=== PATIENT | female | born 1985 | race African-American/Black ===

== ENCOUNTER → 2018-07-20 | Outpatient (CLI) | payer OTHER | LOC: M RAD 09:04 | DX: R94.5 Abnormal results of liver function studies (principal); K76.0 Fatty (change of) liver, not elsewhere classified | CPT/HCPCS: 76705 ==

== ENCOUNTER 2018-11-03 22:32 | Emergency (ER) | payer OTHER ==
[~2018-11-03] VITALS: Ht 149.9 cm; Wt 81.8 kg
[~2018-11-03 22:32] MED LIST: ENOX40IN3 SC; METF500T13 PO; MULTTAB20 PO; VITA200028 PO
[2018-11-03 23:25] LABS: BASO % 0.1 % (0.0-1.0); HEMATOCRIT 37.7 % (36.0-47.0); LYMPH # 1.7 10^3/uL (1.5-4.5); LYMPH % 14.7 % (24.0-44.0); MEAN CORPUSCULAR HEMOGLOBIN 27.8 pg (27.0-33.0); MEAN CORPUSCULAR HGB CONC 31.8 g/dl (32.0-36.5); MEAN CORPUSCULAR VOLUME 87.3 fl (80.0-96.0); MONO # 0.2 10^3/uL (0.0-0.8); MONO % 1.8 % (0.0-5.0); NEUTROPHILS # 9.7 10^3/uL (1.8-7.7); PLATELET COUNT, AUTOMATED 392 10^3/uL (150-450); RED BLOOD COUNT 4.32 10^6/uL (4.00-5.40); WHITE BLOOD COUNT 11.6 10^3/uL (4.0-10.0)
[2018-11-03 23:30] LABS: HCG, SERUM QUALITATIVE NEGATIVE (NEGATIVE)
[2018-11-03] MEDS ORDERED: NS 1,000 ML IV ONE (23:30)
[2018-11-03] MEDS ORDERED: MORPHINE 4 MG/ML 1ML VIAL/SYRINGE (J2270) IV ONE (23:30)
[2018-11-03 23:36] LABS: BLOOD UREA NITROGEN 11 MG/DL (7-18); CALCIUM LEVEL 8.6 MG/DL (8.5-10.1); CARBON DIOXIDE LEVEL 24 MEQ/L (21-32); CHLORIDE LEVEL 104 MEQ/L (98-107); CREATININE FOR GFR 0.71 MG/DL (0.55-1.30); GLOMERULAR FILTRATION RATE > 60.0 (>60); GLUCOSE, FASTING 150 MG/DL (70-100); INR 0.97; POTASSIUM SERUM 4.3 MEQ/L (3.5-5.1); SODIUM LEVEL 136 MEQ/L (136-145)
[2018-11-03 23:37] LABS: PARTIAL THROMBOPLASTIN TIME 29.9 SECONDS (25.4-37.6)
[2018-11-03] MEDS ORDERED: ISOVUE-370 76% 100ML VIAL (Q9967) As Ordered ONE (23:43)
--- NOTE | 2018-11-04 00:28 | REPVR ---
EXAM: CT Angiography Chest With Contrast EXAM DATE/TIME: 11/03/2018 11:38 PM CLINICAL HISTORY: 33 years old, female; Pain; Chest pain; Type not specified; Patient HX: Recent surgery to abdomen; Additional info: Dysp TECHNIQUE: Axial computed tomographic angiography images of the chest with intravenous contrast using CT angiography protocol. All CT scans at this facility use at least one of these dose optimization techniques: automated exposure control; mA and/or kV adjustment per patient size (includes targeted exams where dose is matched to clinical indication); or iterative reconstruction. Coronal and sagittal reformatted images were created and reviewed. MIP reconstructed images were created and reviewed. Technologist notes: Facility exam id and description: CT. [place] CT angio chest CONTRAST: Contrast Material: 100 ml of iso; Contrast Route: ac COMPARISON: No relevant prior studies available. FINDINGS: Pulmonary arteries: The main pulmonary artery measures 23 mm. No pulmonary embolism is identified. Aorta: The ascending thoracic aorta measures 24 mm. Lungs: Mild patchy bilateral groundglass infiltrates with minimal scattered fibro-atelectatic change, greatest in the lower lobes and lingula. Pleural space: Normal. No pneumothorax. No pleural effusion. Heart: Normal. No cardiomegaly. No pericardial effusion. Stomach and bowel: Focal area of induration and stranding with coarse calcifications in the right breast which may reflect dystrophic calcification and prior surgery. Intraperitoneal space: Minimal free air in the abdomen consistent with stated history of recent surgery. Lymph nodes: Unremarkable. No enlarged lymph nodes. Bones/joints: Unremarkable. No acute fracture. Soft tissues: Unremarkable. Other findings: Calcified granulomata are noted and greatest in the medial right apex. IMPRESSION: 1. Mild patchy groundglass pulmonary infiltrates with minimal scattered fibro-atelectatic change, greatest in the lower lobes and lingula. 2. Minimal free air in the abdomen consistent with stated history of recent abdominal surgery. 3. Evidence of old granulomatous disease. 4. Area of coarse calcification and stranding density in the right breast suggesting prior surgery. 5. Otherwise negative CTA chest. No pulmonary embolism is identified. Electronically signed by: Sanjiv Kothari On 11/04/2018 00:28:11 AM
--- NOTE | 2018-11-04 00:39 | REPVR ---
EXAM: CT Abdomen and Pelvis With Contrast EXAM DATE/TIME: 11/03/2018 11:38 PM CLINICAL HISTORY: 33 years old, female; Pain; Abdominal pain; Generalized; Prior surgery; Surgery date: 3-7 days post-operative; Surgery type: Gyno; Additional info: Dysp TECHNIQUE: Axial computed tomography images of the abdomen and pelvis with intravenous contrast. All CT scans at this facility use at least one of these dose optimization techniques: automated exposure control; mA and/or kV adjustment per patient size (includes targeted exams where dose is matched to clinical indication); or iterative reconstruction. Coronal and sagittal reformatted images were created and reviewed. Technologist notes: Facility exam id and description: CT. Abdpelw[place] CT abd/pel w/iv contrast only CONTRAST: Contrast Material: 100 ml of iso; Contrast Route: ac COMPARISON: LIVER US 07/20/2018 9:15 AM FINDINGS: Lower thorax: Minimal bibasilar ground glass infiltrates and fibro-atelectatic change. ABDOMEN: Liver: Liver attenuation is 87 Hounsfield units and the spleen is 152. There are some focal areas of hepatic hyperenhancement consistent with areas of AV shunting. Gallbladder and bile ducts: Normal. No calcified stones. No ductal dilation. Pancreas: Normal. No ductal dilation. Spleen: Normal. No splenomegaly. Adrenals: Normal. No mass. Kidneys and ureters: Normal. No hydronephrosis. Stomach and bowel: Normal. No obstruction. No mucosal thickening. Appendix: A normal appendix is seen. PELVIS: Bladder: Unremarkable as visualized. Reproductive: Inhomogeneous myometrium suggesting small fibroids. There is relative prominence of an inhomogeneous right adnexal structure which may reflect the right ovary which appears enlarged measuring 5.2 x 4.0 x 3.7 cm. There is slight surrounding induration. ABDOMEN and PELVIS: Intraperitoneal space: Gas in the right anterior abdominal wall and minimal free air in the abdomen consistent with stated recent surgery. Gas extends into an epigastric ventral wall hernia and there is uncontained subcutaneous gas in the lower right anterior abdominal and pelvic wall. Bones/joints: No acute fracture. No dislocation. Soft tissues: See Intraperitoneal Space Finding. Vasculature: Normal. No abdominal aortic aneurysm. Lymph nodes: Normal. No enlarged lymph nodes. IMPRESSION: 1. Gas in the right anterior abdominal and pelvic wall and free intraperitoneal air consistent with recent surgery. There is extension of peritoneal gas into an epigastric ventral wall hernia. There is prominent uncontained subcutaneous gas in the lower right abdominal/pelvic wall. 2. Minimal bibasilar ground glass infiltrates and fibro-atelectatic change. 3. Fatty infiltration of the liver. There are some ill-defined areas of hyperenhancement suggesting AV shunting. 4. Suggestion of uterine fibroids. 5. Mild enlargement of the right ovary with slight surrounding induration of uncertain etiology and may reflect recent surgery. Electronically signed by: Sanjiv Kothari On 11/04/2018 00:39:35 AM
[2018-11-04 00:58] VITALS: BP 109/72
--- NOTE | 2018-11-09 07:04 | ED PDOC ---
Post-Departure Follow-Up ct abd/p faxed to dr bach for fu Mary Tomas MD Nov 09, 2018 07:04
--- NOTE | 2018-11-09 07:05 | ED PDOC ---
Post-Departure Follow-Up additionally cta chest faxed to same pcp for fu Mary Tomas MD Nov 09, 2018 07:05
== END 2018-11-04 01:00 | disposition home or self-care (01) ==
LOC: M ED 22:32
DX: G89.18 Other acute postprocedural pain (principal); M25.511 Pain in right shoulder; E11.9 Type 2 diabetes mellitus without complications; Z86.718 Personal history of other venous thrombosis and embolism; Z79.899 Other long term (current) drug therapy; Z79.01 Long term (current) use of anticoagulants; Z79.84 Long term (current) use of oral hypoglycemic drugs
CPT/HCPCS: 71275; 74177; 80048; 84703; 85025; 85610; 85730; 96374; 99283; J2270; Q9967

== ENCOUNTER → 2018-11-18 | Outpatient (CLI) | payer OTHER ==
--- NOTE | 2018-11-18 16:36 | REP ---
Bilateral lower extremity Duplex Doppler venous ultrasound: Real time compression and duplex Doppler interrogation of the bilateral lower extremity deep venous system is performed. Bilaterally, the common femoral, superficial femoral and popliteal veins are fully compressible with transducer pressure and demonstrate normal spontaneous and phasic flow, without evidence of deep venous thrombosis. Impression: No evidence of deep venous thrombosis of the bilateral lower extremity femoral popliteal venous system. Right popliteal cyst is noted measuring 1 cm in diameter. Electronically Signed by Gino Sands MD 11/18/2018 04:28 P
[2018-11-18 17:01] LABS: C REACTIVE PROTEIN QUANTITATIV 1.46 MG/DL (0.00-0.30); RHEUMATOID FACTOR QUANT < 10.0 IU/ML (<15.0)
[2018-11-19 11:40] LABS: NT-PRO BNP 6 PG/ML (<125)
[2018-11-24 00:07] LABS: ANCA-ATYPICAL <1:20 titer (Neg:<1:20); ANTINUCLEAR ANTIBODIES DIRECT Negative (Negative); CYTOPLASMIC NEUTROP AB ANCA-C <1:20 titer (Neg:<1:20); PERINUCLEAR AB ANCA-P <1:20 titer (Neg:<1:20)
[2018-11-26 00:06] LABS: ANGIOTENSIN 1 CONVERTING ENZYM 28 U/L (14-82); ASPERGILLUS FUMIGATUS AB Negative (Negative); AUREOBASIDIUM PULLULANS Negative (Negative); CHLAMYDIA PNEUMONIAE IgM < 1:10 (< 1:10); CHLAMYDIA PSITTACI IgM < 1:10 (< 1:10); CHLAMYDIA TRACHOMATIS IgM < 1:10 (< 1:10); CYCLIC CITRULLINATED PEPTIDE 4 units (0-19); MICROPOLYSPORA FAENI AB Negative (Negative); PIGEON SERUM AB Negative (Negative); SJOGREN'S ANTI SS-A <0.2 AI (0.0-0.9); SJOGREN'S ANTI SS-B <0.2 AI (0.0-0.9); THERMOACTINOMYCES SACCHARI Negative (Negative); THERMOACTINOMYCES VULGARIS Negative (Negative)
== END ==
LOC: M LAB 15:19
PROVIDERS: ATTEND Internal Medicine Pulmonary Disease
DX: R60.9 Edema, unspecified (principal); M71.21 Synovial cyst of popliteal space [Baker], right knee; R91.8 Other nonspecific abnormal finding of lung field

== ENCOUNTER 2018-12-25 09:01 | Emergency (ER) | payer OTHER ==
[~2018-12-25] VITALS: Ht 149.9 cm; Wt 80.9 kg
[~2018-12-25 09:01] MED LIST changes: +CHRO1CAP PO; +METF-882 PO; +PRENTAB53 PO
[2018-12-25] MEDS ORDERED: NS 1,000 ML IV ONE (09:15)
[2018-12-25] MEDS ORDERED: ONDANSETRON 4MG/2ML VIAL (J2405) IV ONE (09:15)
[2018-12-25] MEDS ORDERED: KETOROLAC 30 MG/ML VIAL (J1885) IV ONE (09:30)
[2018-12-25 09:44] LABS: BASO % 0.2 % (0.0-1.0); EOS # 0.1 10^3/uL (0.0-0.50); EOS % 0.8 % (0.0-3.0); HEMATOCRIT 37.8 % (36.0-47.0); HEMOGLOBIN 12.1 g/dl (12.0-15.5); LYMPH # 2.4 10^3/uL (1.5-4.5); LYMPH % 24.7 % (24.0-44.0); MEAN CORPUSCULAR HEMOGLOBIN 27.9 pg (27.0-33.0); MEAN CORPUSCULAR VOLUME 87.1 fl (80.0-96.0); MONO # 0.5 10^3/uL (0.0-0.8); MONO % 5.5 % (0.0-5.0); NEUTROPHILS # 6.7 10^3/uL (1.8-7.7); NEUTROPHILS % 68.6 % (36.0-66.0); PLATELET COUNT, AUTOMATED 334 10^3/uL (150-450); RED BLOOD COUNT 4.34 10^6/uL (4.00-5.40); WHITE BLOOD COUNT 9.8 10^3/uL (4.0-10.0)
[2018-12-25 10:11] LABS: ALT/SGPT 37 U/L (12-78); AMYLASE 33 U/L (25-115); BILIRUBIN,DIRECT 0.1 MG/DL (0.0-0.2); BILIRUBIN,TOTAL 0.3 MG/DL (0.2-1.0); BLOOD UREA NITROGEN 12 MG/DL (7-18); CARBON DIOXIDE LEVEL 23 MEQ/L (21-32); CHLORIDE LEVEL 108 MEQ/L (98-107); CREATININE FOR GFR 0.73 MG/DL (0.55-1.30); GLOMERULAR FILTRATION RATE > 60.0 (>60); GLUCOSE, FASTING 136 MG/DL (70-100); LIPASE 76 U/L (73-393); POTASSIUM SERUM 4.2 MEQ/L (3.5-5.1); SODIUM LEVEL 140 MEQ/L (136-145); TOTAL PROTEIN 7.3 GM/DL (6.4-8.2)
--- NOTE | 2018-12-25 11:47 | REP ---
Pelvic ultrasound including transabdominal, endovaginal and Doppler ultrasound assessment for pelvic pain and history of ovarian cyst and fibroids: There are no comparisons available. The bladder is incompletely distended. The uterus is anteverted, however the fundus is retroflexed. The uterus is enlarged measuring 11.0 x 4.9 x 6.8 cm. The myometrium is diffusely heterogeneous. There are multiple fibroids, the largest measuring up to 2.3 cm. The endometrium is diffusely thickened measuring up to 16.3 mm. Right ovary: The right ovary contains a 3.4-0.4 x 2.5 cm cyst with multiple internal echoes. This is nonspecific and could represent an hemorrhagic cyst or endometrioma. Including this cyst the right ovary is enlarged measuring 6.6 x 6.0 x 4.3 cm. There is vascular flow in the right ovary with the Doppler resistive index of the parenchymal arteries measuring 0.75. Left ovary: The left ovary is been surgically removed. No free fluid in the pelvis. Impression: There is a 6.6 cm right ovarian cyst containing multiple internal echoes, compatible with hemorrhagic cyst versus endometrioma. There is vascular flow in the right ovary. The uterus is enlarged and heterogeneous. There are multiple uterine fibroids, the largest measuring up to 2.0 cm. Electronically Signed by Gino Rees MD 12/25/2018 11:38 A
[2018-12-25] MEDS ORDERED: ONDA4TAB6 PO (12:35)
[2018-12-25] MEDS ORDERED: IBUP1TAB7 PO (12:36)
[2018-12-25 12:41] VITALS: BP 107/64
== END 2018-12-25 12:55 | disposition home or self-care (01) ==
LOC: M ED 09:01
DX: N83.201 Unspecified ovarian cyst, right side (principal); D25.9 Leiomyoma of uterus, unspecified; N80.9 Endometriosis, unspecified; Z79.899 Other long term (current) drug therapy; Z86.718 Personal history of other venous thrombosis and embolism
CPT/HCPCS: 76830; 76856; 80048; 80076; 81001; 82150; 83690; 85025; 87086; 93976; 96361; 96374; 96375; 99284; J1885; J2405

== ENCOUNTER → 2018-12-26 | Outpatient (REF) | payer OTHER ==
[~2018-12-26] MED LIST changes: +IBUP1TAB7 PO; +ONDA4TAB6 PO
== END ==
LOC: M LAB REF 09:50
PROVIDERS: ATTEND Physician Assistant
DX: R11.10 Vomiting, unspecified (principal); R19.7 Diarrhea, unspecified

== ENCOUNTER → 2019-04-09 | Outpatient (REF) | payer OTHER ==
[~2019-04-09] MED LIST changes: +CHRO400T PO; +RA B1TAB2 PO; +RA T500C2 PO
== END ==
LOC: M LAB REF 11:23
PROVIDERS: ATTEND Internal Medicine Hematology & Oncology
DX: D64.9 Anemia, unspecified (principal); D72.820 Lymphocytosis (symptomatic)

== ENCOUNTER → 2019-04-22 | Outpatient (CLI) | payer OTHER ==
[~2019-04-22] MED LIST changes: +AUGM500T34 PO
--- NOTE | 2019-04-22 10:26 | REP ---
CHEST, TWO VIEWS: There is no evidence of acute infiltrate. No pleural effusion is seen. The heart is normal in size. The mediastinal silhouette is unremarkable. The visualized osseous structures are intact. IMPRESSION: No acute pulmonary disease. Electronically Signed by Gino Sands MD 04/22/2019 11:25 A
[2019-04-22 10:35] LABS: HEMATOCRIT 38.7 % (36.0-47.0); HEMOGLOBIN 12.4 g/dl (12.0-15.5); MEAN CORPUSCULAR HEMOGLOBIN 28.1 pg (27.0-33.0); MEAN CORPUSCULAR VOLUME 87.8 fl (80.0-96.0); PLATELET COUNT, AUTOMATED 371 10^3/uL (150-450); RED BLOOD COUNT 4.41 10^6/uL (4.00-5.40); WHITE BLOOD COUNT 6.2 10^3/uL (4.0-10.0)
== END ==
LOC: M LAB 09:32
PROVIDERS: ATTEND Internal Medicine Hematology & Oncology
DX: Z86.718 Personal history of other venous thrombosis and embolism (principal)

== ENCOUNTER 2019-08-14 00:56 | Emergency (ER) | payer OTHER ==
[~2019-08-14] VITALS: Ht 149.9 cm; Wt 77.3 kg
[~2019-08-14 00:56] MED LIST changes: -AUGM500T34 PO
[2019-08-14 00:57] VITALS: BP 125/78
[2019-08-14] MEDS ORDERED: MORPHINE 10 MG/ML 1ML VIAL (J2270) IM ONE (02:30)
[2019-08-14] MEDS ORDERED: BUPIVACAINE LIPOSOME/PF 1.3% 20ML VIAL (13.3MG/ML)(EXPAREL)(C9290 PER1MG) INFIL ONE (02:30)
[2019-08-14] MEDS ORDERED: AUGM500T34 PO (04:25)
[2019-08-14] MEDS ORDERED: AUGMENTIN 875 MG TAB PO ONE (04:30)
--- NOTE | 2019-08-14 05:28 | REP ---
Clinical: Trauma/injury. Technique: AP, lateral, bilateral oblique views of the right foot. Findings: Acute versus chronic fracture and angulation involving the distal aspect of the fifth toe requires correlation with history, point of tenderness, and mechanism of injury. Remainder examination appears normal. No further acute fracture or dislocation. No subcutaneous emphysema. No foreign body. Impression: Acute versus chronic injury with fracture and angulation at the distal aspect fifth toe. Correlation is required. Electronically Signed by Vahid Jensen MD 08/14/2019 05:19 A
--- NOTE | 2019-08-14 05:37 | REP ---
Clinical: Trauma . Technique: AP, lateral views of the left ankle. Findings: No acute fracture or dislocation. Skeletal structures and joint spaces are intact and normal. Ankle mortise appears stable. No subcutaneous emphysema or radiodense foreign body. Impression: No acute fracture or dislocation. Electronically Signed by Vahid Jensen MD 08/14/2019 05:28 A
--- NOTE | 2019-08-14 05:38 | REP ---
Clinical: Trauma. Technique: AP, lateral views of the left tibia / fibula Findings: The osseous structures and joint spaces are intact and normal. There is no evidence for acute fracture or dislocation. Surrounding soft tissues are unremarkable. No subcutaneous emphysema or radiodense foreign body. Impression: No acute fracture or dislocation. Electronically Signed by Vahid Jensen MD 08/14/2019 05:29 A
== END 2019-08-14 05:19 | disposition home or self-care (01) ==
LOC: M ED 00:56
DX: S92.501B Displaced unspecified fracture of right lesser toe(s), initial encounter for open fracture (principal); W10.8XXA Fall (on) (from) other stairs and steps, initial encounter; Y92.009 Unspecified place in unspecified non-institutional (private) residence as the place of occurrence of the external cause; Y93.01 Activity, walking, marching and hiking; Z79.01 Long term (current) use of anticoagulants; Z79.84 Long term (current) use of oral hypoglycemic drugs
CPT/HCPCS: 12001; 73590; 73600; 73630; 96372; 99282; C9290; J2270

== ENCOUNTER → 2020-09-23 | Outpatient (CLI) | payer SELFPAY ==
[~2020-09-23] MED LIST changes: +AUGM500T34 PO; +DERM1TAB2 PO; +LOVE1INJ SC; +MULT1TAB8 PO; +OVAS1POW PO
== END ==
LOC: M LABSMTC 09:09
PROVIDERS: ATTEND Pediatrics
DX: Z20.822 Contact with and (suspected) exposure to COVID-19 (principal)

== ENCOUNTER → 2021-05-18 | Outpatient (CLI) | payer OTHER ==
[~2021-05-18] MED LIST changes: +LETR2.5T2 PO; +ORIL200T PO
--- NOTE | 2021-05-25 15:12 | REPMRS ---
Patient History The patient states she had a clinical breast exam in May 2021. Patient is nulliparous. Family history of breast cancer at age 50 or over in maternal grandmother. Reductions of both breasts, 2009. Patient states no breast complaints today. Patient has signed MRS History Sheet. Digital Woman Screen Mammo: May 18, 2021 - Exam #: [id number] Bilateral CC and MLO view(s) were taken. Technologist: Audelia Hercules, Technologist Prior study comparison: 2015, bilateral digital mammo screening bilat, performed at [facility]. FINDINGS: There are scattered fibroglandular densities. Screening. Digital screening (2D) mammography was performed bilaterally in the CC and MLO projections. Additionally, breast tomosynthesis (3D mammography) was performed bilaterally in the CC and MLO projections. Todays exam was compared to the prior exam/exams. By history, the patient has no complaints of a palpable breast abnormality or other significant breast complaints. The breasts are unchanged in size and shape. There are no james-soft tissue densities or spiculated masses. There is no internal architectural distortion. Once again, stable benign appearing calcifications are seen.There are no suspicious james-calcific clusters. Skin thickening or nipple retraction is not present. IMPRESSION: BI-RADS Category 2- Benign Findings. There is no evidence of malignant alteration of the breasts. Followup examination recommended in one year. The Volpara volumetric breast density category is B, there are scattered areas of fibroglandular densities. This mammogram was read with the assistance of [employer],an FDA approved computer aided detection system for mammography. The lifetime Tyrer-Cuzick score is 21.4 % Due to the density of the breasts or Tyrer Cuzick score of 20% or greater, MRI/whole breast screening ultrasound is warranted. Negative x-ray reports should not delay surgical consultation if a dominant or clinically suspicious mass is present. Not all breast cancers can be identified by mammography. Therefore, we recommend that you continue to perform regular breast self-examination and physical examination and then promptly contact your physician of any concerns or changes. Adenosis and dense breasts may obscure an underlying neoplasm. Assessment: BI-RADS/ACR category 2 mammogram. Benign Findings. Recommendation Breast MRI of both breasts in 6 months. Routine screening mammogram of both breasts in 1 year (for women over age 40). This patient's [facility] Lifetime Breast Cancer Risk is estimated at 21.4 %. Patients whose estimated lifetime breast cancer risk assessment is greater than 20% merit annual screening breast MRI scanning in addition to annual mammography. This mammogram was interpreted with the aid of an FDA-approved computer-aided dectection system. Electronically Signed By: Nahum Mercado MD 05/25/21 [id number]
== END ==
LOC: M WHC 14:26
PROVIDERS: ATTEND Obstetrics & Gynecology
DX: Z12.31 Encounter for screening mammogram for malignant neoplasm of breast (principal); Z80.3 Family history of malignant neoplasm of breast; Z98.890 Other specified postprocedural states

== ENCOUNTER 2021-06-11 16:40 | Emergency (ER) | payer OTHER ==
[~2021-06-11] VITALS: Ht 149.9 cm; Wt 73.6 kg
[2021-06-11 16:42] VITALS: BP 138/97
[2021-06-11] MEDS ORDERED: LOVE1INJ SC (17:17)
[2021-06-11] MEDS ORDERED: ESTR2TAB2 (17:17)
[2021-06-11] MEDS ORDERED: ENDO100S VA (17:17)
[2021-06-11] MEDS ORDERED: PLAQ200T4 PO (17:17)
[2021-06-11] MEDS ORDERED: NALTREXONE PO (17:17)
[2021-06-11] MEDS ORDERED: PRED10TA2 (17:17)
[2021-06-11 20:05] LABS: HEMATOCRIT 42.5 % (36.0-47.0); HEMOGLOBIN 13.8 g/dl (12.0-15.5); MEAN CORPUSCULAR HGB CONC 32.5 g/dl (32.0-36.5); MEAN CORPUSCULAR VOLUME 89.3 fl (80.0-96.0); PLATELET COUNT, AUTOMATED 354 10^3/uL (150-450); RED BLOOD COUNT 4.76 10^6/uL (4.00-5.40); WHITE BLOOD COUNT 12.6 10^3/uL (4.0-10.0)
[2021-06-11 20:41] LABS: ATYPICAL LYMPH 6 % (0-5); BASOPHILS 2 % (0-1); LYMPHOCYTES 36 % (16-44); MONOCYTES 4 % (0-5); NEUTROPHILS 52 % (28-66); PLATELET ESTIMATE INCREASED (NORMAL)
[2021-06-11 20:42] LABS: SMUDGE CELLS 1+
[2021-06-11 22:34] LABS: HCG, SERUM QUALITATIVE POSITIVE (NEGATIVE)
[2021-06-11 22:40] LABS: ALBUMIN 3.5 GM/DL (3.2-5.2); ALT/SGPT 26 U/L (12-78); BILIRUBIN,DIRECT < 0.1 MG/DL (0.0-0.2); BILIRUBIN,TOTAL 0.1 MG/DL (0.2-1.0); BLOOD UREA NITROGEN 18 MG/DL (7-18); CALCIUM LEVEL 9.3 MG/DL (8.5-10.1); CARBON DIOXIDE LEVEL 26 MEQ/L (21-32); CHLORIDE LEVEL 102 MEQ/L (98-107); CREATININE FOR GFR 0.66 MG/DL (0.55-1.30); GLOMERULAR FILTRATION RATE > 60.0 (>60); GLUCOSE, FASTING 93 MG/DL (70-100); LIPASE 73 U/L (73-393); POTASSIUM SERUM 3.8 MEQ/L (3.5-5.1); SODIUM LEVEL 133 MEQ/L (136-145); TOTAL PROTEIN 7.5 GM/DL (6.4-8.2)
--- NOTE | 2021-06-11 22:44 | REPVR ---
PROCEDURE INFORMATION: Exam: US First Trimester, Transabdominal and US , Transvaginal Exam date and time: 06/11/2021 9:57 PM Age: 36 years old Clinical indication: Lmp or gestational age (in weeks): 5 day embyro transferred on 05/24/21; Antepartum complications; Bleeding; TECHNIQUE: Imaging protocol: Real-time transabdominal obstetrical ultrasound of the maternal pelvis and a first trimester , less than 14 weeks 0 days, with image documentation. Transvaginal imaging was used for better evaluation of the fetus, adnexa, and/or cervix. COMPARISON: No relevant prior studies available. FINDINGS: Gestation: There is a single intrauterine gestational sac and a 2 mm in diameter yolk sac. No pole is identified. Embryonic/ heart rate: No cardiac activity is visualized. Extra-embryonic membranes/Placenta: Unremarkable. No subchorionic bleed. Amniotic fluid: Amniotic fluid/chorionic fluid is normal for gestational age. BIOMETRY: Gestational age (AUA): 5 weeks 6 days Estimated due date (AUA): 02/05/2022 Mean sac diameter: 1.09 cm. MATERNAL: Uterus: The uterus is anteverted and measures 10.3 cm x 5.3 cm x 7.2 cm. No myometrial mass is noted. Cervix: Closed. Right adnexa: The right ovary measures 5.6 cm x 4.6 cm x 4.3 cm and contains a 2.1 cm x 1.7 cm x 2.1 cm cyst with simple characteristics. The arterial and venous color Doppler flow and spectral waveforms within the right ovary are within normal limits, without evidence for right ovarian torsion. Left adnexa: There has been a left oophorectomy. Intraperitoneal space: No free fluid is seen from the images obtained. IMPRESSION: 1. Single intrauterine gestational sac with a mean sac diameter corresponding to a gestational age of 5 weeks 6 days and estimated due date on 02/05/2022, but no embryo is visualized, which may be secondary to the early gestational age or failure. Followup ultrasonography at 7 to 10 days or as clinically indicated to assess the for viability is generally appropriate. 2. 2.1 cm x 1.7 cm x 2.1 cm right ovarian cyst with simple characteristics. Electronically signed by: Peterson Tavares On 06/11/2021 22:44:23 PM
[2021-06-11 22:59] LABS: HCG, SERUM QUANTITATIVE 7845 MIU/ML
[2021-06-11] MEDS ORDERED: NS 1,000 ML IV ONE (23:25)
== END 2021-06-12 01:38 | disposition home or self-care (01) ==
LOC: M ED 16:40
DX: O20.0 Threatened abortion (principal); Z3A.09 9 weeks gestation of pregnancy; O34.81 Maternal care for other abnormalities of pelvic organs, first trimester; N83.201 Unspecified ovarian cyst, right side

== ENCOUNTER 2021-06-21 03:52 | Emergency (ER) | payer OTHER ==
[~2021-06-21] VITALS: Ht 149.9 cm; Wt 76.7 kg
[~2021-06-21 03:52] MED LIST changes: +ENDO100S VA; +ESTR2TAB3; +NALTREXONE PO; +PLAQ200T4 PO; +PRED10TA2
[2021-06-21 07:16] LABS: HEMATOCRIT 42.6 % (36.0-47.0); HEMOGLOBIN 13.8 g/dl (12.0-15.5); MEAN CORPUSCULAR HGB CONC 32.4 g/dl (32.0-36.5); MEAN CORPUSCULAR VOLUME 89.5 fl (80.0-96.0); PLATELET COUNT, AUTOMATED 359 10^3/uL (150-450); RED BLOOD COUNT 4.76 10^6/uL (4.00-5.40); WHITE BLOOD COUNT 13.2 10^3/uL (4.0-10.0)
[2021-06-21 08:15] LABS: ATYPICAL LYMPH 2 % (0-5); EOSINOPHILS 1 % (0-3); LYMPHOCYTES 33 % (16-44); MONOCYTES 5 % (0-5); NEUTROPHILS 59 % (28-66)
[2021-06-21 08:16] LABS: PLATELET ESTIMATE NORMAL (NORMAL)
--- NOTE | 2021-06-21 09:24 | REP ---
INDICATION: vaginal bleeding in preg COMPARISON: 06/11/2021 TECHNIQUE: Transabdominal 1st trimester obstetrical ultrasound with color Doppler evaluation. FINDINGS: Single live early intrauterine is appreciated. Gestational sac with yolk sac and pole identified. [place]-rump length of 7 mm corresponds to 6 weeks 4 days gestational age with estimated date of delivery 02/10/2022. heart rate equals 125 beats per minute. 35 x 13 x 18 mm suspected subchorionic hemorrhage adjacent to the gestational sac. Right ovary includes 1.9 cm corpus luteum cyst. IMPRESSION: 1. Single live early intrauterine at 6 weeks 4 days gestational age. 2. Complete anatomical assessment should be performed and 19-20 weeks. 3. Subchorionic hemorrhage adjacent to the gestational sac. <Electronically signed by Vahid Jensen > 06/21/21 [id number]
[2021-06-21 10:34] VITALS: BP 158/97
== END 2021-06-21 10:45 | disposition home or self-care (01) ==
LOC: M ED 03:52
DX: O20.8 Other hemorrhage in early pregnancy (principal); Z3A.01 Less than 8 weeks gestation of pregnancy; Z87.42 Personal history of other diseases of the female genital tract; Z86.718 Personal history of other venous thrombosis and embolism; Z79.899 Other long term (current) drug therapy

== ENCOUNTER → 2021-10-03 | Outpatient (REF) ==
[~2021-10-03] MED LIST changes: +naltrexone PO
== END ==
LOC: M LABSMTC 10:50
PROVIDERS: ATTEND Pediatrics
DX: Z11.52 Encounter for screening for COVID-19 (principal); Z20.822 Contact with and (suspected) exposure to COVID-19

== ENCOUNTER → 2021-10-10 | Outpatient (REF) | LOC: M LABSMTC 10:08 | PROVIDERS: ATTEND Pediatrics | DX: Z11.52 Encounter for screening for COVID-19 (principal); Z20.822 Contact with and (suspected) exposure to COVID-19 ==